=== PATIENT | female | born 1985 | race Caucasian/White ===

== ENCOUNTER 2016-11-26 10:23 | Emergency (ER) | payer OTHER ==
[2016-11-26] MEDS ORDERED: TORAdol 30 mg Injection IV ONE (11:07)
--- NOTE | 2016-11-26 11:07 | ERPHSYRPT ---
- History of Present Illness Time Seen by Provider: 11/26/16 11:03 Source: patient Exam Limitations: no limitations Patient Subjective Stated Complaint: PT REPORTS SWELLING TO RIGHT FACE BEGINNING THIS AM-REPORTS LAST FEW DAYS HAS HAD A COLD-LOW GRADE FEVER OF 99.7 YESTERDAY Triage Nursing Assessment: PT PALE WARM ET DRY-A & O X 3-BASEBALL SIZE SWELLING NOTED TO RIGHT JAW-RESP EASY ET NONLABORED-ABLE TO SPEAK IN COMPLETE SENTECES WITH EASE Physician History: The patient is a 31-year-old female with her complaining of a swollen right lower jaw when she woke up this morning. She states she has poor dentition. She has pain in the right lower jaw. She's had a fever for a couple of days. She's had some nausea and vomiting as well for a couple days. Timing/Duration: abrupt onset Severity: severe ENT Location: mouth, facial Prearrival Treatment: no prearrival treatment Modifying Factors: Improves With: nothing Associated Symptoms: fever, jaw pain, tooth pain Allergies/Adverse Reactions: No Known Drug Allergies Allergy (Unverified 11/26/16 10:35) Home Medications: Fexofenadine HCl [Davina] 60 mg PO DAILY 11/26/16 [History] Hx Tetanus, Diphtheria Vaccination/Date Given: No Hx Influenza Vaccination/Date Given: No Hx Pneumococcal Vaccination/Date Given: No Immunizations Up to Date: Yes - Review of Systems Constitutional: Fever Eyes: No Symptoms Ears, Nose, & Throat: Mouth Pain, Mouth Swelling Respiratory: No Cough, No Dyspnea Cardiac: No Chest Pain, No Edema, No Syncope Abdominal/Gastrointestinal: Nausea, Vomiting Genitourinary Symptoms: No Dysuria Musculoskeletal: No Back Pain, No Neck Pain Skin: No Rash Neurological: No Dizziness, No Focal Weakness, No Sensory Changes Psychological: No Symptoms Endocrine: No Symptoms Hematologic/Lymphatic: No Symptoms Immunological/Allergic: No Symptoms All Other Systems: Reviewed and Negative - Past Medical History Pertinent Past Medical History: Yes Other Medical History: SEASONAL ALLERGIES - Past Surgical History Past Surgical History: Yes Female Surgical History: Other - Social History Smoking Status: Current some day smoker Drug Use: none Patient Lives Alone: No - Female History Hx Last Menstrual Period: YESTERDAY - Nursing Vital Signs Nursing Vital Signs: Initial Vital Signs Temperature 98.3 F Temperature Source Oral Pulse Rate 75 Respiratory Rate 16 Blood Pressure [Right Arm] 98/60 Pain Intensity 8 - Physical Exam General Appearance: mild distress Eye Exam: bilateral eye: PERRL, EOMI Ear Exam: bilateral ear: auricle normal Nasal Exam: normal inspection Throat Exam: dental tenderness, mandibular swelling (right) Neck Exam: supple Cardiovascular/Respiratory Exam: normal breath sounds, regular rate/rhythm Abdominal Exam: non-tender, soft Neurologic Exam: alert, oriented x 3, sensation nml, No motor deficits Skin Exam: normal color, warm, dry SpO2 Interpretation: normal SpO2: 100 Oxygen Delivery: Room Air Ordered Tests: Active Orders 24 hr Category Date Time Status IV Insertion STAT Care 11/26/16 11:07 Active BMP Stat Lab 11/26/16 11:00 Completed CBC W DIFF Stat Lab 11/26/16 11:00 Completed Lactic Acid Urgent Lab 11/26/16 11:07 Completed Medication Summary Generic Name Dose Route Start Last Admin Trade Name Freq PRN Reason Stop Dose Admin Sodium Chloride 1,000 mls @ 100 mls/hr 11/26/16 11:15 11/26/16 11:17 Sodium Chloride 0.9% 1000 Ml IV 12/26/16 11:14 100 mls/hr .Q10H LEXY Administration Discontinued Medications Generic Name Dose Route Start Last Admin Trade Name Freq PRN Reason Stop Dose Admin Ceftriaxone Sodium/Dextrose 50 mls @ 100 mls/hr 11/26/16 11:08 11/26/16 11:17 Rocephin 1 Gm-D5w 50 Ml Bag IV 11/26/16 11:37 100 mls/hr STAT ONE Administration Ceftriaxone Sodium/Dextrose Confirm 11/26/16 11:11 Rocephin 1 Gm-D5w 50 Ml Bag Administered 11/26/16 11:12 Dose 50 mls @ ud IV .STK-MED ONE Ketorolac Tromethamine 30 mg 11/26/16 11:07 11/26/16 11:17 Toradol 30 Mg Injection IV 11/26/16 11:08 30 mg STAT ONE Administration Ketorolac Tromethamine Confirm 11/26/16 11:11 Toradol 30 Mg Injection Administered 11/26/16 11:12 Dose 30 mg .ROUTE .STK-MED ONE Lab/Rad Data: Laboratory Result Diagrams 11/26/16 11:00 11/26/16 11:00 Laboratory Results 11/26/16 11/26/16 11/26/16 Range/Units 11:07 11:00 11:00 WBC 9.9 (4.0-10.5) K/mm3 RBC 4.54 (4.1-5.4) M/mm3 Hgb 12.8 (12.0-16.0) gm/dl Hct 39.2 (35-47) % MCV 86.3 (78-100) fl MCH 28.2 (26-32) pg MCHC 32.7 (32-36) g/dl RDW 14.8 H (11.5-14.0) % Plt Count 255 (150-450) K/mm3 MPV 10.8 H (6-9.5) fl Gran % 82.3 H (36.0-66.0) % Lymphocytes % 11.4 L (24.0-44.0) % Monocytes % 5.4 (0.0-12.0) % Eosinophils % 0.7 (0.00-5.0) % Basophils % 0.2 (0.0-0.4) % Basophils # 0.02 (0-0.4) Sodium 140 (136-145) mEq/L Potassium 4.0 (3.5-5.1) mEq/L Chloride 105 (98-107) mEq/L Carbon Dioxide 24.9 (21-32) mEq/L Anion Gap 13.8 (5-15) MEQ/L BUN 7 L (9-20) mg/dL Creatinine 0.57 (0.55-1.30) mg/dl Estimated GFR > 60 ML/MIN Glucose 91 (70-110) MG/DL Lactic Acid 0.8 (0.4-2.0) Calcium 8.4 L (8.5-10.1) mg/dL - Progress Progress: improved Progress Note: 11/26/16 13:03 After toradol 30 mg IV, pt is pain-free. Counseled pt/family regarding: diagnosis, need for follow-up - Departure Time of Disposition: 13:03 Departure Disposition: Home Clinical Impression: Dental abscess Condition: Stable Critical Care Time: No Additional Instructions: You have a dental abscess. While in the ER, you're given Rocephin 1 g and Toradol 30 mg by IV. You were given a prescription for penicillin 500 mg 4 times a day for 10 days. You may take ibuprofen 800 mg every 8 hours as needed. You may also take Tylenol 1000 mg every 8 hours as needed. Follow up with a dentist. Prescriptions: Penicillin V Potassium 500 mg PO QID #40 tablet
[2016-11-26] MEDS ORDERED: ROCEPHIN 1 Gm-D5w 50 ml Bag** 50 ML IV ONE ×2 (11:08→11:11)
[2016-11-26] MEDS ORDERED: TORAdol 30 mg Injection ONE (11:11)
[2016-11-26] MEDS ORDERED: Sodium Chloride 0.9% 1000 ML 1,000 ML ONE (11:14)
[2016-11-26 11:15] LABS: BASOPHIL % 0.2 % (0.0-0.4); Eosinophil % 0.7 % (0.00-5.0); Granulocytes % 82.3 % (36.0-66.0); Lymphocytes % 11.4 % (24.0-44.0); Mean Cell Volume 86.3 fl (78-100); Mean Corpuscular Hemoglobin 28.2 pg (26-32); Mean Platelet Volume 10.8 fl (6-9.5); Monocytes % 5.4 % (0.0-12.0); Platelet Count 255 K/mm3 (150-450); Red Blood Count 4.54 M/mm3 (4.1-5.4); Red Cell Distribution Width 14.8 % (11.5-14.0); White Blood Count 9.9 K/mm3 (4.0-10.5)
[2016-11-26] MEDS ORDERED: Sodium Chloride 0.9% 1000 ML 1,000 ML IV SCH (11:15)
[2016-11-26 11:22] LABS: ANION GAP 13.8 MEQ/L (5-15); BLOOD UREA NITROGEN 7 mg/dL (9-20); CHLORIDE 105 mEq/L (98-107); Carbon Dioxide 24.9 mEq/L (21-32); Glucose 91 MG/DL (70-110); SODIUM 140 mEq/L (136-145)
[2016-11-26 11:32] VITALS: BP 98/60; PULSE 75
[2016-11-26 13:06] VITALS: O2SAT 100
== END 2016-11-26 13:11 | disposition home or self-care (01) ==
LOC: ED 10:23
DX: K04.7 Periapical abscess without sinus (principal)
CPT/HCPCS: 36000; 36415; 80048; 83605; 85025; 96360; 96361; 96365; 96374; 99284; J0696; J1885

== ENCOUNTER 2020-07-24 00:22 | Emergency (ER) | payer OTHER ==
--- NOTE | 2020-07-24 00:25 | ERPHSYRPT ---
- History of Present Illness Time Seen by Provider: 07/24/20 00:25 Source: patient Exam Limitations: no limitations Physician History: This is a 34-year-old white female who has significant history anxiety and tries to stay away from any prescription medications to help control it. This is a bad time a year for her. She had a sibling that approximately a year ago and this is the first [place] without the sibling. Patient is not suicidal or homicidal. She tries to control her anxiety with CBD oil, Benadryl, behavioral modification, biofeedback and counseling. This morning, her anxiety was still relatively high despite taking those measures stated above. She denies illicit drug use. She has no chest pain she has no shortness of breath. Is no abdominal pain. No nausea vomiting but did experience diarrhea yesterday. Severity of Symptoms-Max: moderate Severity of Symptoms-Current: moderate Context related to: other (Recent in the family, holiday season and generalized anxiety issues) Associated Symptoms: anxiety Previous symptoms: same symptoms as today Allergies/Adverse Reactions: No Known Drug Allergies Allergy (Verified 07/24/20 00:49) Hx Tetanus, Diphtheria Vaccination/Date Given: No Hx Influenza Vaccination/Date Given: No Hx Pneumococcal Vaccination/Date Given: No Travel Risk - International Travel Have you traveled outside of the country in past 3 weeks: No - Coronavirus Screening Are you exhibiting any of the following symptoms?: No Close contact with a COVID-19 positive Pt in past 14-21 Days: No - Past Medical History Pertinent Past Medical History: Yes Neurological History: No Pertinent History ENT History: No Pertinent History Cardiac History: No Pertinent History Respiratory History: No Pertinent History Endocrine Medical History: No Pertinent History Musculoskeletal History: No Pertinent History GI Medical History: No Pertinent History History: No Pertinent History Psycho-Social History: Anxiety Female Reproductive Disorders: No Pertinent History Other Medical History: SEASONAL ALLERGIES - Past Surgical History Past Surgical History: Yes Neuro Surgical History: No Pertinent History Cardiac: No Pertinent History Respiratory: No Pertinent History Gastrointestinal: No Pertinent History Genitourinary: No Pertinent History Musculoskeletal: No Pertinent History Female Surgical History: No Pertinent History, Other - Social History Smoking Status: Current some day smoker Drug Use: none Patient Lives Alone: No - Review of Systems Constitutional: No Symptoms Eyes: No Symptoms Ears, Nose, & Throat: No Symptoms Respiratory: No Symptoms Cardiac: No Symptoms Abdominal/Gastrointestinal: No Symptoms Genitourinary Symptoms: No Symptoms Musculoskeletal: No Symptoms Skin: No Symptoms Neurological: No Symptoms Psychological: Anxiety, No Suicidal Ideations, No Homicidal Ideations, No Hallucinations Endocrine: No Symptoms Hematologic/Lymphatic: No Symptoms Immunological/Allergic: No Symptoms All Other Systems: Reviewed and Negative - Nursing Vital Signs Nursing Vital Signs: Initial Vital Signs Temperature 98.4 F 07/24/20 00:50 Pulse Rate 85 07/24/20 00:50 Respiratory Rate 16 07/24/20 00:50 Blood Pressure 125/85 07/24/20 00:50 O2 Sat by Pulse Oximetry 98 07/24/20 00:50 Pain Scale Pain Intensity 0 - Physical Exam General Appearance: no apparent distress, alert, anxiety Eyes, Ears, Nose, Throat Exam: normal ENT inspection, moist mucous membranes Neck Exam: normal inspection, non-tender, supple, full range of motion Respiratory Exam: normal breath sounds, lungs clear, airway intact, No chest tenderness, No respiratory distress Cardiovascular Exam: regular rate/rhythm, normal heart sounds, normal peripheral pulses Gastrointestinal/Abdominal Exam: No tenderness Current Suicidality: denies suicide plan Neurological Exam: alert, normal mood/affect, calm, 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, oriented x 3, anxious Appearance: appropriate appearance, appropriate insight, neat Behavior/Eye Contact/Speech: alert & cooperative, good eye contact, normal speech Thoughts/Hallucinations: normal thought pattern, no apparent hallucination Skin Exam: normal color, warm, dry SpO2 Interpretation: normal O2 Delivery: Room Air - Course Nursing assessment & vital signs reviewed: Yes EKG Interpreted by Me: RATE (83), Sinus Rhythm, NORMAL AXIS, NORMAL INTERVALS, NORMAL QRS, NORMAL ST-T, Other (No comparison EKG) Ordered Tests: Medication Summary Discontinued Medications Generic Name Dose Route Start Last Admin Trade Name Freq PRN Reason Stop Dose Admin Lorazepam 1 mg 07/24/20 01:28 Ativan 1 Mg PO 07/24/20 01:29 STAT ONE - Progress Progress: unchanged Counseled pt/family regarding: diagnosis, need for follow-up - Departure Departure Disposition: Home Clinical Impression: Anxiety Condition: Stable Critical Care Time: No Additional Instructions: Follow-up with your prescribing physician for further management of your anxiety issues.
[2020-07-24] MEDS ORDERED: Ativan 1 MG PO ONE (01:28)
[2020-07-24] MEDS ORDERED: Ativan 1 MG ONE (01:30)
[2020-07-24 01:44] VITALS: BP 120/80; PULSE 70; O2SAT 99
== END 2020-07-24 01:48 | disposition home or self-care (01) ==
LOC: ED 00:22
DX: F41.9 Anxiety disorder, unspecified (principal)
CPT/HCPCS: 93005; 99283; A9270-GY